=== PATIENT | male | born 1940 | race Caucasian/White ===

== ENCOUNTER → 2023-11-26 09:56 | Outpatient (REF) | payer OTHER, SELFPAY | LOC: RCS 09:56 | PROVIDERS: ATTENDING PHYSICIAN Internal Medicine Cardiovascular Disease; FAMILY PHYSICIAN Internal Medicine | DX: I25.10 Atherosclerotic heart disease of native coronary artery without angina pectoris (principal) | CPT/HCPCS: 93225; 93226 ==

== ENCOUNTER → 2024-11-12 14:40 | Outpatient (REF) | payer OTHER, SELFPAY | LOC: RCS 14:40 | PROVIDERS: ATTENDING PHYSICIAN Internal Medicine; FAMILY PHYSICIAN Internal Medicine | DX: I25.10 Atherosclerotic heart disease of native coronary artery without angina pectoris (principal); I10 Essential (primary) hypertension; I11.9 Hypertensive heart disease without heart failure; I44.0 Atrioventricular block, first degree; I45.2 Bifascicular block | CPT/HCPCS: 93306 ==

== ENCOUNTER 2024-12-12 22:19 | Emergency (ER) | payer OTHER, MEDICARE, SELFPAY ==
[2024-12-12 22:25] VITALS: BP 190/68
[2024-12-12 22:44] LABS: % Basophils 0.9 % (0-2); % Immature Granulocytes 0.3 % (0-0.5); % Lymphocytes 38.3 % (20.5-51.1); % Monocytes 10.7 % (1.7-9.3); % Neutrophils 46.8 % (42.2-75.2); Absolute Basophils 0.1 10^3/uL (0-0.2); Absolute Eosinophils 0.2 10^3/uL (0-0.7); Absolute Lymphocytes 2.8 10^3/uL (1.2-3.4); Absolute Monocytes 0.8 10^3/uL (0.1-0.6); Absolute Neutrophils 3.5 10^3/uL (1.4-6.5); Hematocrit 39.5 % (39.0-52.0); Hemoglobin 13.9 g/dL (13.0-18.0); Mean Corp Hgb Conc. 35.2 g/dL (33.0-37.0); Mean Corpuscular Hgb 32.2 pg (27.0-31.0); Mean Corpuscular Volume 91.4 fL (80.0-94.0); Mean Platelet Volume 8.7 fL (7.4-10.4); Nucleated Red Blood Cells % 0 % (-); Platelet Count 217 10^3/uL (130-400); Red Blood Cell Count 4.32 10^6/uL (4.70-6.10); Red Cell Dist. Width 12.1 % (11.5-14.5); White Blood Cell Count 7.4 10^3/uL (4.8-10.8)
[2024-12-12 22:57] LABS: ALT (SGPT) 24 U/L (0-50); AST (SGOT) 29 U/L (17-59); Albumin 4.3 g/dl (3.5-5.0); Alkaline Phosphatase 99 U/L (38-126); Blood Urea Nitrogen 16 mg/dl (9-20); Calcium 9.8 mg/dl (8.4-10.2); Carbon Dioxide 27 mmol/L (22-30); Chloride 93 mmol/L (98-107); Glucose 122 mg/dl (70-99); Potassium 4.4 mmol/L (3.5-5.1); Sodium 129 mmol/L (135-145); Total Bilirubin 0.7 mg/dl (0.2-1.3); eGFR > 60.00
[2024-12-12 23:08] LABS: NT-proBNP 271 pg/ml; Troponin I < 0.012 ng/ml
[2024-12-12 23:19] VITALS: BP 179/76
[2024-12-13] VITALS: BP 144/67
--- NOTE | 2024-12-13 00:53 | ED.GENMED ---
History of Present Illness
General
Chief Complaint: Heart Rate Problem
Time Seen by Provider: 12/12/24 23:09
History of Present Illness
History of Present Illness:
84-year-old male presents the emergency department for evaluation of general weakness and an episode of near syncope. He notes that he has been consuming large amounts of dextromethorphan cough syrup due to a lisinopril mediated cough for the past
6 weeks, recently switched from lisinopril to losartan and the cough is resolved. 3 days ago he attempted to discontinue dextromethorphan and began to feel very abnormal and was advised to slowly wean off of this due to withdrawal symptoms. Notes
today that he was having frequent 'skipped beats' that he noted on his pulse oximeter. Denied any chest pain or shortness of breath with these episodes with the 1 exception of near syncope that was nonexertional
Review of Systems
Review of Systems
Allergies reviewed?: Yes
All Other Systems: ROS reviewed and negative except as documented in HPI and ROS
Phy Exam
Physical Exam
Physical Exam:
GEN: Well appearing, NAD, WDWN
HEENT: Oral mucosa moist, no scleral icterus
Cardiac: Regular rate and rhythm, no murmur
Lung: No respiratory distress, no tachypnea, lungs clear to auscultation bilaterally
MSK: No gross deformity or injuries
Skin: Good color, no pallor or jaundice, no rashes
Neuro: AO x3, moves all extremities freely
Psych: Calm, cooperative
Course
Orders/Labs/Results
Orders:
Orders
12/12/24 22:21
EKG [Electrocardiogram (*1)] Urgent
Reason for Study: Tachycardia
EKG- Treatment ONCE
12/12/24 22:29
CR Chest - 2 Views Urgent
Comment:
Reason For Exam: increased rate of breathing
12/12/24 22:33
Comprehensive Metabolic Panel Urgent
NT-proBNP Urgent
Troponin I Urgent
12/12/24 22:34
Complete Blood Count/With Diff Urgent
Abnormal Lab Results
12/12/24 12/12/24
22:33 22:34
RBC 4.32 L 10^6/uL
(4.70-6.10)
MCH 32.2 H pg
(27.0-31.0)
Absolute Monos (auto) 0.8 H 10^3/uL
(0.1-0.6)
Monocytes % 10.7 H %
(1.7-9.3)
Sodium 129 L mmol/L
(135-145)
Chloride 93 L mmol/L
(98-107)
Glucose 122 H mg/dl
(70-99)
12/12/24 22:34
12/12/24 22:33
Vital Signs
Initial and Last Documented VS:
Initial Vital Signs
Temp Pulse Resp BP Pulse Ox
97.8 F 68 20 190/68 98
12/12/24 22:25 12/12/24 22:25 12/12/24 22:25 12/12/24 22:25 12/12/24 22:25
Last Documented Vital Signs
Temp Pulse Resp BP Pulse Ox
97.8 F 65 19 179/76 99
12/12/24 22:25 12/12/24 23:45 12/12/24 23:45 12/12/24 23:19 12/12/24 23:45
MDM/Problems Addressed
MDM/Problems Addressed:
Patient was briefly noted to be in ventricular bigeminy however this resolved. He appeared asymptomatic and denied complaints during this episode. Frequency of PVCs did diminish while in the ED. Labs are reassuring. I do think that the majority
of his symptoms are anxiety mediated however cannot discount the dextromethorphan withdrawal syndrome. I have recommended that he wean down his dextromethorphan use over the next 48 to 72 hours as opposed to abrupt discontinuation. Do not feel
that he warrants inpatient observation on telemetry as there is no evidence for severe symptoms from his frequent PVCs. Would not advise beta-lisa use as this likely will resolve after DM withdrawal resolves
*Critical Care Note
Total Time (30-74mins, 75-104mins- exclusive of procedures): Not Applicable
ED Attending Note
-
Portions of this chart may have been created with voice recognition software.� Occasional wrong word or��sound alike� substitutions may have occurred due to the inherent limitations of voice recognition software.
Discharge Plan
Departure
Patient Disposition: Home (Routine Discharge)
Date of Disposition: 12/13/24
Time of Disposition: 00:53
Patient with high blood pressure during this ER visit?: No
Discharge Problem:
Dextromethorphan use disorder, mild, Symptomatic PVCs
Instructions: Ventricular premature beats
Prescriptions:
No Action
Artificial Tears
BID
latanoprost 1 DROP drops
1 drp OPHTHALMIC HS
Patient Comments:
bl eyes
alprazolam 0.25 MG tablet
0.25 mg PO .2-3 TIMES A DAY
lisinopril 10 MG tablet
10 mg PO DAILY
nitroglycerin 0.4 MG tablet, sublingual
0.4 mg sublingual [id number] PRN (Reason: chest pain)
azelastine 1 SPRAY aerosol,spray
1 spray intranasal BIDPRN PRN (Reason: prn)
dorzolamide 10 ML drops
OPHTHALMIC TID
Patient Comments:
bl eyes
omeprazole magnesium [Prilosec OTC] 20 MG tablet,delayed release (DR/EC)
20 mg PO DAILY
brimonidine-timolol [Combigan] 1 DROP drops
0 drp OP BID
Patient Comments:
both eyes
1 drp BOTH EYES DAILY
Lotemax
RIGHT EYE DAILY
Multivitamin with Minerals
PO DAILY
Patient Comments:
Vitamins:C 1,000MG, D 400IU, E 400IU, Fish oil 1200mg, Glucosamine 1500MG, Condroitin 1200MG.
Referrals:
Lashawn Zelaya, DO [Family Provider] -
Activity Restrictions/Additional Instructions:
Follow-up with your emergency medical technician/driver if the PVCs do not seem to resolve despite weaning off the cough medicine
Interventions
Interventions:
*General Assessment Last Done: 12/12/24 22:25
Discharge Date and Time
Print Language: BERMUDIAN
== END 2024-12-13 00:30 | disposition home or self-care (01) ==
LOC: EMR 22:19
PROVIDERS: Emergency Medicine; EMERGENCY PHYSICIAN Emergency Medicine; FAMILY PHYSICIAN Internal Medicine; REFERRING PHYSICIAN Internal Medicine
DX: F55.8 Abuse of other non-psychoactive substances (principal); I49.3 Ventricular premature depolarization; F41.9 Anxiety disorder, unspecified
CPT/HCPCS: 99283; 71046; 80053; 83880; 84484; 85025; 93005